=== PATIENT | male | born 1995 | race Two or more races ===

== ENCOUNTER 2019-09-05 00:47 | Inpatient (IN) | payer MEDICAID, OTHER ==
[~2019-09-05] VITALS: Ht 170.2 cm; Wt 78.9 kg
[2019-09-05 01:51] LABS: AMPHET/METH SCREEN,URINE NEGATIVE (NEGATIVE); BARBITURATE SCREEN, URINE NEGATIVE (NEGATIVE); BENZODIAZEPINES SCREEN,URINE NEGATIVE (NEGATIVE); CANNABINOID SCREEN,URINE NEGATIVE (NEGATIVE); COCAINE SCREEN,URINE NEGATIVE (NEGATIVE); METHADONE SCREEN, URINE NEGATIVE (NEGATIVE); OPIATE SCREEN,URINE NEGATIVE (NEGATIVE)
[2019-09-05 01:52] LABS: PHENCYCLIDINE SCREEN,URINE NEGATIVE (NEGATIVE)
[2019-09-05] MEDS ORDERED: OLAN5TAB40 PO (02:12)
[2019-09-05 02:34] LABS: ANION GAP 7 mmol/L (8-16); CALCIUM, TOTAL 9.3 mg/dL (8.8-10.5); CARBON DIOXIDE 28 mmol/L (22-29); CHLORIDE 102 mmol/L (98-107); CREATININE 0.92 mg/dL (0.60-1.30); GLOMERULAR FILTR. RATE CALC > 60 mL/min (>60); GLUCOSE,RANDOM 104 mg/dL (70-110); POTASSIUM 3.9 mmol/L (3.5-5.1); SODIUM SERUM 137 mmol/L (136-145); UREA NITROGEN, BLOOD 8 mg/dL (7-18)
[2019-09-05 02:40] LABS: ALANINE AMINOTRANSFERASE 25 U/L (12-78); ALBUMIN 3.6 g/dL (3.4-5.0); ALKALINE PHOSPHATASE 83 U/L (46-116); ASPARTATE AMINOTRANSFERASE 15 U/L (15-37); BILIRUBIN,TOTAL 0.1 mg/dL (0.1-1.0)
[2019-09-05 02:51] LABS: BASOPHILS % (AUTO) 0.3 % (0.0-2.0); EOSINOPHILS % (AUTO) 1.4 % (1.0-6.0); HEMATOCRIT 44.5 % (41-53); HEMOGLOBIN 15.1 g/dL (13.5-17.5); LYMPHOCYTES # (AUTO) 2.8 K/uL (1.0-4.8); LYMPHOCYTES % (AUTO) 40.4 % (22.0-44.0); MEAN CORPUSCULAR HEMOGLOBIN 29.6 pg (26.0-34.0); MEAN CORPUSCULAR VOLUME 87 fL (80-100); MONOCYTES # (AUTO) 0.4 K/uL (0.1-1.0); NEUTROPHILS # (AUTO) 3.6 K/uL (1.8-7.7); NEUTROPHILS % (AUTO) 51.9 % (40.0-70.0); PLATELET COUNT (AUTO) 388 K/uL (150-450); RED BLOOD CELL COUNT(AUTO) 5.11 MIL/uL (4.50-5.90); RED CELL DISTRIBUTION WIDTH 13.7 % (11.5-14.5)
[2019-09-05] MEDS ORDERED: QUEtiapine FUMARATE 100 MG TABLET PO PRN (04:45)
[2019-09-05 06:12] VITALS: BP 138/91
[2019-09-05 06:19] VITALS: BP 138/91
[2019-09-05] MEDS ORDERED: INFLUENZA VIRUS VACCINE QVS 2019-20 (3YR+)/PF 60 MCG/0.5 ML SYRINGE IM ONE (07:00)
[2019-09-05 08:30] VITALS: BP 135/86
[2019-09-05] MEDS ORDERED: GuaiFENesin/D-METHORPHAN [SUGAR-FREE] 200-20MG/10 ML SYRUP UDCUP PO PRN (11:30)
[2019-09-05] MEDS ORDERED: TUBERCULIN, PURIFIED PROTEIN DERIVATIVE 5 TU/0.1 ML SYRINGE ID ONE (11:30)
[2019-09-05] MEDS ORDERED: LOPERAMIDE HCL 2 MG CAPSULE PO PRN (11:30)
[2019-09-05] MEDS: THIAMINE HCL 100 MG TABLET PO SCH (16:50)
[2019-09-05 17:25] VITALS: BP 107/55
[2019-09-05] MEDS: ACETAMINOPHEN 325 MG TABLET PO PRN (17:38)
[2019-09-05] MEDS ORDERED: OLANZapine 5 MG RAPDIS TABLET PO SCH (21:00)
[2019-09-06 04:15] VITALS: BP 129/88
[2019-09-06 08:18] LABS: CHOL/HDL RATIO 5.1 (4.2-7.3); FREE T4 (FREE THYROXINE) 1.2 ng/dL (0.76-1.46); THYROID STIMULATING HORMONE 0.77 uIU/mL (0.36-3.74)
[2019-09-06 08:30] VITALS: BP 138/76
[2019-09-06] MEDS: FOLIC ACID 1 MG TABLET PO SCH (08:37)
[2019-09-06] MEDS: NALTREXONE HCL 50 MG TABLET PO SCH (08:37)
[2019-09-06] MEDS: MULTIVITAMINS WITH MINERALS, THERAPEUTIC TABLET PO SCH (08:37)
[2019-09-06] MEDS: OLANZapine 5 MG RAPDIS TABLET PO PRN (08:38)
[2019-09-06] MEDS: THIAMINE HCL 100 MG TABLET PO SCH ×2 (08:39→16:32)
[2019-09-06] MEDS: LORazepam 2 MG TABLET PO PRN ×2 (09:54→10:18)
[2019-09-06] MEDS: HydrOXYzine PAMOATE 50 MG CAPSULE PO PRN (10:18)
[2019-09-06 17:28] VITALS: BP 127/65
[2019-09-06 19:40] VITALS: BP 130/78
[2019-09-06] MEDS: ACETAMINOPHEN 325 MG TABLET PO PRN (19:43)
[2019-09-06] MEDS: OLANZapine 10 MG RAPDIS TABLET PO SCH (20:23)
[2019-09-07] MEDS: NALTREXONE HCL 50 MG TABLET PO SCH (08:24)
[2019-09-07] MEDS: FOLIC ACID 1 MG TABLET PO SCH (08:24)
[2019-09-07] MEDS: MULTIVITAMINS WITH MINERALS, THERAPEUTIC TABLET PO SCH (08:24)
[2019-09-07] MEDS: THIAMINE HCL 100 MG TABLET PO SCH ×2 (08:24→16:20)
[2019-09-07] MEDS: LORazepam 2 MG TABLET PO PRN ×2 (08:28→23:46)
[2019-09-07] MEDS: OLANZapine 5 MG RAPDIS TABLET PO PRN (08:28)
[2019-09-07 16:08] VITALS: BP 125/60
[2019-09-07] MEDS: HydrOXYzine PAMOATE 50 MG CAPSULE PO PRN (16:20)
[2019-09-07] MEDS: ACETAMINOPHEN 325 MG TABLET PO PRN (16:21)
[2019-09-07] MEDS: MAGNESIUM HYDROXIDE SUSPENSION 30 ML UDCUP PO PRN (17:14)
[2019-09-07] MEDS: OLANZapine 10 MG RAPDIS TABLET PO SCH (20:29)
[2019-09-07] MEDS: DIVALPROEX SODIUM 250 MG ER TABLET PO SCH (20:29)
[2019-09-07] MEDS: ZOLPIDEM TARTRATE 10 MG TABLET PO PRN (23:46)
[2019-09-08 00:31] VITALS: BP 151/76
[2019-09-08 08:30] VITALS: BP 144/73
[2019-09-08] MEDS: THIAMINE HCL 100 MG TABLET PO SCH ×2 (08:40→16:06)
[2019-09-08] MEDS: MULTIVITAMINS WITH MINERALS, THERAPEUTIC TABLET PO SCH (08:40)
[2019-09-08] MEDS: LORazepam 2 MG TABLET PO PRN ×3 (08:40→18:44)
[2019-09-08] MEDS: NALTREXONE HCL 50 MG TABLET PO SCH (08:40)
[2019-09-08] MEDS: FOLIC ACID 1 MG TABLET PO SCH (08:40)
[2019-09-08] MEDS: OLANZapine 5 MG RAPDIS TABLET PO PRN ×2 (08:40→13:12)
[2019-09-08] MEDS: HydrOXYzine PAMOATE 50 MG CAPSULE PO PRN ×3 (08:40→18:44)
[2019-09-08 16:14] VITALS: BP 150/89
[2019-09-08] MEDS: ACETAMINOPHEN 325 MG TABLET PO PRN (18:27)
[2019-09-08] MEDS: DIVALPROEX SODIUM 250 MG ER TABLET PO SCH (20:16)
[2019-09-08] MEDS: OLANZapine 10 MG RAPDIS TABLET PO SCH (20:17)
[2019-09-08] MEDS ORDERED: LORazepam 2 MG/ML VIAL IM ONE (21:20)
[2019-09-08] MEDS ORDERED: DiphenhydrAMINE HCL 50 MG/ML VIAL ONE (21:20)
[2019-09-08] MEDS ORDERED: HALOPERIDOL LACTATE 5 MG/ML VIAL ONE (21:20)
[2019-09-08] MEDS ORDERED: DiphenhydrAMINE HCL 50 MG/ML VIAL IM ONE (21:20)
[2019-09-08] MEDS ORDERED: LORazepam 2 MG/ML VIAL ONE (21:20)
[2019-09-09] MEDS: ZOLPIDEM TARTRATE 10 MG TABLET PO PRN (00:55)
[2019-09-09] MEDS: OLANZapine 5 MG RAPDIS TABLET PO PRN (00:56)
[2019-09-09] MEDS: MULTIVITAMINS WITH MINERALS, THERAPEUTIC TABLET PO SCH (08:39)
[2019-09-09] MEDS: THIAMINE HCL 100 MG TABLET PO SCH ×2 (08:39→15:56)
[2019-09-09] MEDS: FOLIC ACID 1 MG TABLET PO SCH (08:39)
[2019-09-09] MEDS: NALTREXONE HCL 50 MG TABLET PO SCH (08:40)
[2019-09-09 10:03] VITALS: BP 161/84
[2019-09-09] MEDS: LORazepam 2 MG TABLET PO PRN (15:56)
[2019-09-09] MEDS: DIVALPROEX SODIUM 250 MG ER TABLET PO SCH (20:19)
[2019-09-09] MEDS: OLANZapine 10 MG RAPDIS TABLET PO SCH (20:20)
[2019-09-09] MEDS: MAG HYDROX/AL HYDROX/SIMETH ES 30 ML SUSPENSION UDCUP PO PRN (21:34)
[2019-09-10] MEDS: ZOLPIDEM TARTRATE 10 MG TABLET PO PRN ×2 (02:52→22:59)
[2019-09-10] MEDS: LORazepam 2 MG TABLET PO PRN ×4 (02:53→23:48)
[2019-09-10] MEDS: THIAMINE HCL 100 MG TABLET PO SCH ×2 (07:57→16:17)
[2019-09-10] MEDS: PROMETHAZINE HCL 25 MG TABLET PO PRN (07:57)
[2019-09-10] MEDS: FOLIC ACID 1 MG TABLET PO SCH (07:57)
[2019-09-10] MEDS: NALTREXONE HCL 50 MG TABLET PO SCH (07:57)
[2019-09-10] MEDS: MULTIVITAMINS WITH MINERALS, THERAPEUTIC TABLET PO SCH (08:00)
[2019-09-10] MEDS: OLANZapine 5 MG RAPDIS TABLET PO PRN (08:02)
[2019-09-10 08:43] VITALS: BP 123/73
[2019-09-10] MEDS: NICOTINE 21 MG/24 HOUR PATCH TD SCH (18:31)
[2019-09-10] MEDS: MAG HYDROX/AL HYDROX/SIMETH ES 30 ML SUSPENSION UDCUP PO PRN (19:08)
[2019-09-10] MEDS: OLANZapine 10 MG RAPDIS TABLET PO SCH (20:35)
[2019-09-10] MEDS: TraZODone HCL 100 MG TABLET PO SCH (20:35)
[2019-09-10] MEDS: DIVALPROEX SODIUM 250 MG ER TABLET PO SCH (20:35)
[2019-09-11 00:03] VITALS: BP 158/85
[2019-09-11] MEDS: ACETAMINOPHEN 325 MG TABLET PO PRN ×3 (00:05→21:52)
[2019-09-11] MEDS: OLANZapine 5 MG RAPDIS TABLET PO PRN ×3 (01:53→15:55)
[2019-09-11] MEDS: THIAMINE HCL 100 MG TABLET PO SCH ×2 (07:53→15:55)
[2019-09-11] MEDS: FOLIC ACID 1 MG TABLET PO SCH (07:53)
[2019-09-11] MEDS: MULTIVITAMINS WITH MINERALS, THERAPEUTIC TABLET PO SCH (07:53)
[2019-09-11] MEDS: LORazepam 2 MG TABLET PO PRN ×3 (07:54→23:14)
[2019-09-11] MEDS: NALTREXONE HCL 50 MG TABLET PO SCH (07:55)
[2019-09-11] MEDS: NICOTINE 21 MG/24 HOUR PATCH TD SCH (07:56)
[2019-09-11 08:24] VITALS: BP 148/75
[2019-09-11] MEDS: FLUoxetine HCL 20 MG CAPSULE PO SCH (11:18)
[2019-09-11] MEDS ORDERED: HALOPERIDOL LACTATE 5 MG/ML VIAL IM ONE (16:30)
[2019-09-11] MEDS ORDERED: DiphenhydrAMINE HCL 50 MG/ML VIAL IM ONE (16:30)
[2019-09-11] MEDS ORDERED: LORazepam 2 MG/ML VIAL IM ONE (16:30)
[2019-09-11 18:21] VITALS: BP 121/73
[2019-09-11] MEDS: MAG HYDROX/AL HYDROX/SIMETH ES 30 ML SUSPENSION UDCUP PO PRN (18:54)
[2019-09-11] MEDS: DIVALPROEX SODIUM 250 MG ER TABLET PO SCH (20:15)
[2019-09-11] MEDS: TraZODone HCL 100 MG TABLET PO SCH (20:15)
[2019-09-11] MEDS: OLANZapine 10 MG RAPDIS TABLET PO SCH (20:16)
[2019-09-11 22:02] VITALS: BP 133/84
[2019-09-12 08:08] VITALS: BP 134/72
[2019-09-12] MEDS: FLUoxetine HCL 20 MG CAPSULE PO SCH (08:08)
[2019-09-12] MEDS: MULTIVITAMINS WITH MINERALS, THERAPEUTIC TABLET PO SCH (08:08)
[2019-09-12] MEDS: OLANZapine 5 MG RAPDIS TABLET PO PRN ×3 (08:08→17:55)
[2019-09-12] MEDS: LORazepam 2 MG TABLET PO PRN ×4 (08:08→22:07)
[2019-09-12] MEDS: FOLIC ACID 1 MG TABLET PO SCH (08:08)
[2019-09-12] MEDS: THIAMINE HCL 100 MG TABLET PO SCH ×2 (08:08→16:05)
[2019-09-12] MEDS: NALTREXONE HCL 50 MG TABLET PO SCH (08:10)
[2019-09-12] MEDS: NICOTINE 21 MG/24 HOUR PATCH TD SCH (08:12)
[2019-09-12] MEDS: MAGNESIUM HYDROXIDE SUSPENSION 30 ML UDCUP PO PRN (16:58)
[2019-09-12] MEDS: OLANZapine 10 MG RAPDIS TABLET PO SCH (20:06)
[2019-09-12] MEDS: DIVALPROEX SODIUM 500 MG ER TABLET PO SCH (20:06)
[2019-09-12] MEDS: TraZODone HCL 100 MG TABLET PO SCH (20:06)
[2019-09-12] MEDS: ACETAMINOPHEN 325 MG TABLET PO PRN (20:08)
[2019-09-13 08:20] VITALS: BP 138/65
[2019-09-13] MEDS: FLUoxetine HCL 20 MG CAPSULE PO SCH (08:28)
[2019-09-13] MEDS: FOLIC ACID 1 MG TABLET PO SCH (08:29)
[2019-09-13] MEDS: NALTREXONE HCL 50 MG TABLET PO SCH (08:29)
[2019-09-13] MEDS: MULTIVITAMINS WITH MINERALS, THERAPEUTIC TABLET PO SCH (08:29)
[2019-09-13] MEDS: THIAMINE HCL 100 MG TABLET PO SCH ×2 (08:29→15:57)
[2019-09-13] MEDS: NICOTINE 21 MG/24 HOUR PATCH TD SCH (08:30)
[2019-09-13] MEDS: PROMETHAZINE HCL 25 MG TABLET PO PRN (11:41)
[2019-09-13] MEDS: LORazepam 2 MG TABLET PO PRN ×2 (11:41→15:46)
[2019-09-13 13:15] VITALS: BP 120/94
[2019-09-13] MEDS: ACETAMINOPHEN 325 MG TABLET PO PRN ×2 (13:15→18:25)
[2019-09-13] MEDS: OLANZapine 5 MG RAPDIS TABLET PO PRN (15:35)
[2019-09-13] MEDS ORDERED: MUPIROCIN CALCIUM 2% 22 GM OINTMENT NASAL SCH (17:00)
[2019-09-13 18:26] VITALS: BP 133/82
[2019-09-13] MEDS: DIVALPROEX SODIUM 500 MG ER TABLET PO SCH (20:18)
[2019-09-13] MEDS: TraZODone HCL 100 MG TABLET PO SCH (20:18)
[2019-09-13] MEDS: OLANZapine 10 MG RAPDIS TABLET PO SCH (20:18)
[2019-09-14 08:09] VITALS: BP 112/86
[2019-09-14] MEDS: NALTREXONE HCL 50 MG TABLET PO SCH (08:11)
[2019-09-14] MEDS: FOLIC ACID 1 MG TABLET PO SCH (08:11)
[2019-09-14] MEDS: FLUoxetine HCL 20 MG CAPSULE PO SCH (08:11)
[2019-09-14] MEDS: MULTIVITAMINS WITH MINERALS, THERAPEUTIC TABLET PO SCH (08:11)
[2019-09-14] MEDS: THIAMINE HCL 100 MG TABLET PO SCH ×2 (08:11→16:13)
[2019-09-14] MEDS: OMEGA-3/DHA/EPA/FISH OIL 1,000 MG CAPSULE PO SCH (08:11)
[2019-09-14] MEDS: NICOTINE 21 MG/24 HOUR PATCH TD SCH (08:11)
[2019-09-14] MEDS: OLANZapine 5 MG RAPDIS TABLET PO PRN (10:13)
[2019-09-14] MEDS: LORazepam 2 MG TABLET PO PRN (13:24)
[2019-09-14 14:27] VITALS: BP 124/82
[2019-09-14] MEDS: ACETAMINOPHEN 325 MG TABLET PO PRN (14:27)
[2019-09-14 16:09] VITALS: BP 138/87
[2019-09-14] MEDS: DIVALPROEX SODIUM 500 MG ER TABLET PO SCH (20:10)
[2019-09-14] MEDS: TraZODone HCL 100 MG TABLET PO SCH (20:11)
[2019-09-14] MEDS: OLANZapine 10 MG RAPDIS TABLET PO SCH (20:11)
[2019-09-15 01:42] VITALS: BP 130/70
[2019-09-15] MEDS: LORazepam 2 MG TABLET PO PRN ×3 (01:46→15:36)
[2019-09-15] MEDS: ACETAMINOPHEN 325 MG TABLET PO PRN ×2 (01:46→13:23)
[2019-09-15] MEDS: THIAMINE HCL 100 MG TABLET PO SCH (07:18)
[2019-09-15] MEDS: FLUoxetine HCL 20 MG CAPSULE PO SCH (07:18)
[2019-09-15] MEDS: NICOTINE 21 MG/24 HOUR PATCH TD SCH (07:18)
[2019-09-15] MEDS: NALTREXONE HCL 50 MG TABLET PO SCH (07:18)
[2019-09-15] MEDS: FOLIC ACID 1 MG TABLET PO SCH (07:18)
[2019-09-15] MEDS: OLANZapine 5 MG RAPDIS TABLET PO PRN ×2 (07:18→15:36)
[2019-09-15] MEDS: MULTIVITAMINS WITH MINERALS, THERAPEUTIC TABLET PO SCH (07:19)
[2019-09-15] MEDS: OMEGA-3/DHA/EPA/FISH OIL 1,000 MG CAPSULE PO SCH (07:19)
[2019-09-15 08:29] LABS: BASOPHILS % (AUTO) 0.5 % (0.0-2.0); HEMATOCRIT 40.8 % (41-53); HEMOGLOBIN 13.7 g/dL (13.5-17.5); LYMPHOCYTES # (AUTO) 2.5 K/uL (1.0-4.8); LYMPHOCYTES % (AUTO) 37.9 % (22.0-44.0); MEAN CORPUSCULAR HEMOGLOBIN 29.4 pg (26.0-34.0); MEAN CORPUSCULAR HGB CONC 33.6 G/dL (31.0-37.0); MEAN CORPUSCULAR VOLUME 87 fL (80-100); MONOCYTES # (AUTO) 0.5 K/uL (0.1-1.0); MONOCYTES % (AUTO) 7.1 % (2.0-9.0); NEUTROPHILS # (AUTO) 3.5 K/uL (1.8-7.7); NEUTROPHILS % (AUTO) 51.5 % (40.0-70.0); PLATELET COUNT (AUTO) 320 K/uL (150-450); RED BLOOD CELL COUNT(AUTO) 4.66 MIL/uL (4.50-5.90); RED CELL DISTRIBUTION WIDTH 13.8 % (11.5-14.5)
[2019-09-15 08:46] LABS: ALANINE AMINOTRANSFERASE 30 U/L (12-78); ALKALINE PHOSPHATASE 56 U/L (46-116); ANION GAP 7 mmol/L (8-16); ASPARTATE AMINOTRANSFERASE 17 U/L (15-37); BILIRUBIN,TOTAL 0.2 mg/dL (0.1-1.0); CALCIUM, TOTAL 8.6 mg/dL (8.8-10.5); CARBON DIOXIDE 27 mmol/L (22-29); CHLORIDE 100 mmol/L (98-107); CREATININE 0.99 mg/dL (0.60-1.30); GLOMERULAR FILTR. RATE CALC > 60 mL/min (>60); GLUCOSE,RANDOM 128 mg/dL (70-110); POTASSIUM 3.9 mmol/L (3.5-5.1); SODIUM SERUM 134 mmol/L (136-145); TOTAL PROTEIN, SERUM 6.2 g/dL (6.4-8.2); UREA NITROGEN, BLOOD 12 mg/dL (7-18); VALPROIC ACID 62 mcg/mL (50-100)
[2019-09-15 10:08] VITALS: BP 134/74
[2019-09-15] MEDS: MAGNESIUM HYDROXIDE SUSPENSION 30 ML UDCUP PO PRN (11:46)
[2019-09-15] MEDS: MAGNESIUM SULFATE 454 GM BOX TP SCH (16:16)
[2019-09-15 19:49] VITALS: BP 145/65
[2019-09-15] MEDS: OLANZapine 10 MG RAPDIS TABLET PO SCH (19:52)
[2019-09-15] MEDS: DIVALPROEX SODIUM 500 MG ER TABLET PO SCH (19:52)
[2019-09-15] MEDS: TraZODone HCL 100 MG TABLET PO SCH (19:52)
[2019-09-15] MEDS: NAPROXEN 500 MG TABLET PO PRN (21:53)
[2019-09-15 21:54] VITALS: BP 132/78
[2019-09-15] MEDS: MAG HYDROX/AL HYDROX/SIMETH ES 30 ML SUSPENSION UDCUP PO PRN (21:57)
[2019-09-16 05:15] VITALS: BP 110/75
[2019-09-16] MEDS: LORazepam 2 MG TABLET PO PRN ×3 (05:21→16:04)
[2019-09-16] MEDS: ACETAMINOPHEN 325 MG TABLET PO PRN ×3 (05:22→10:01)
[2019-09-16 08:04] VITALS: BP 139/62
[2019-09-16] MEDS: FLUoxetine HCL 20 MG CAPSULE PO SCH (08:19)
[2019-09-16] MEDS: NICOTINE 21 MG/24 HOUR PATCH TD SCH (08:19)
[2019-09-16] MEDS: NALTREXONE HCL 50 MG TABLET PO SCH (08:19)
[2019-09-16] MEDS: MULTIVITAMINS WITH MINERALS, THERAPEUTIC TABLET PO SCH (08:19)
[2019-09-16] MEDS: MAGNESIUM SULFATE 454 GM BOX TP SCH ×2 (08:20→16:04)
[2019-09-16] MEDS: OMEGA-3/DHA/EPA/FISH OIL 1,000 MG CAPSULE PO SCH (08:21)
[2019-09-16] MEDS: OLANZapine 5 MG RAPDIS TABLET PO PRN ×2 (10:01→16:04)
[2019-09-16] MEDS: MAG HYDROX/AL HYDROX/SIMETH ES 30 ML SUSPENSION UDCUP PO PRN (15:37)
[2019-09-16] MEDS: MAGNESIUM HYDROXIDE SUSPENSION 30 ML UDCUP PO PRN (15:37)
[2019-09-16 16:17] VITALS: BP 126/73
[2019-09-16] MEDS: OLANZapine 10 MG RAPDIS TABLET PO SCH ×2 (19:30→20:18)
[2019-09-16] MEDS: DIVALPROEX SODIUM 500 MG ER TABLET PO SCH ×2 (19:31→20:18)
[2019-09-16] MEDS: TraZODone HCL 100 MG TABLET PO SCH ×2 (19:33→20:18)
[2019-09-16] MEDS: ZOLPIDEM TARTRATE 10 MG TABLET PO PRN (20:52)
[2019-09-17] MEDS: FLUoxetine HCL 20 MG CAPSULE PO SCH (07:42)
[2019-09-17] MEDS: NALTREXONE HCL 50 MG TABLET PO SCH (07:42)
[2019-09-17] MEDS: MULTIVITAMINS WITH MINERALS, THERAPEUTIC TABLET PO SCH (07:42)
[2019-09-17] MEDS: OMEGA-3/DHA/EPA/FISH OIL 1,000 MG CAPSULE PO SCH (07:42)
[2019-09-17] MEDS: NICOTINE 21 MG/24 HOUR PATCH TD SCH (07:43)
[2019-09-17] MEDS: MAGNESIUM SULFATE 454 GM BOX TP SCH ×2 (07:43→16:12)
[2019-09-17] MEDS: MAGNESIUM HYDROXIDE SUSPENSION 30 ML UDCUP PO PRN ×2 (08:13→13:03)
[2019-09-17] MEDS: LORazepam 2 MG TABLET PO PRN ×3 (09:26→21:53)
[2019-09-17] MEDS: OLANZapine 5 MG RAPDIS TABLET PO PRN ×2 (09:26→16:10)
[2019-09-17 10:58] VITALS: BP 140/67
[2019-09-17] MEDS ORDERED: MAGNESIUM CITRATE 300 ML ORAL SOLUTION PO ONE (15:15)
[2019-09-17 16:13] VITALS: BP 136/92
[2019-09-17 17:16] VITALS: BP 128/85
[2019-09-17] MEDS: ACETAMINOPHEN 325 MG TABLET PO PRN (17:16)
[2019-09-17] MEDS: TraZODone HCL 100 MG TABLET PO SCH (20:21)
[2019-09-17] MEDS: DIVALPROEX SODIUM 500 MG ER TABLET PO SCH (20:21)
[2019-09-17] MEDS: OLANZapine 10 MG RAPDIS TABLET PO SCH (20:21)
[2019-09-17] MEDS: ZOLPIDEM TARTRATE 10 MG TABLET PO PRN (20:35)
[2019-09-18] MEDS: OLANZapine 5 MG RAPDIS TABLET PO PRN ×2 (00:58→13:47)
[2019-09-18] MEDS: ACETAMINOPHEN 325 MG TABLET PO PRN ×2 (04:00→16:26)
[2019-09-18 04:01] VITALS: BP 130/70
[2019-09-18] MEDS: NICOTINE 21 MG/24 HOUR PATCH TD SCH (08:19)
[2019-09-18] MEDS: NALTREXONE HCL 50 MG TABLET PO SCH (08:19)
[2019-09-18] MEDS: FLUoxetine HCL 20 MG CAPSULE PO SCH (08:19)
[2019-09-18] MEDS: OMEGA-3/DHA/EPA/FISH OIL 1,000 MG CAPSULE PO SCH (08:19)
[2019-09-18] MEDS: MULTIVITAMINS WITH MINERALS, THERAPEUTIC TABLET PO SCH (08:20)
[2019-09-18 09:39] VITALS: BP 125/63
[2019-09-18] MEDS: MAGNESIUM SULFATE 454 GM BOX TP SCH ×2 (10:00→16:26)
[2019-09-18] MEDS: LORazepam 2 MG TABLET PO PRN (12:14)
[2019-09-18 16:06] VITALS: BP 123/72
[2019-09-18] MEDS: DIVALPROEX SODIUM 500 MG ER TABLET PO SCH (20:13)
[2019-09-18] MEDS: TraZODone HCL 100 MG TABLET PO SCH (20:13)
[2019-09-18] MEDS: OLANZapine 10 MG RAPDIS TABLET PO SCH (20:13)
[2019-09-19 00:45] VITALS: BP 134/82
[2019-09-19] MEDS: ZOLPIDEM TARTRATE 10 MG TABLET PO PRN (00:47)
[2019-09-19] MEDS: ACETAMINOPHEN 325 MG TABLET PO PRN (00:48)
[2019-09-19 05:15] VITALS: BP 123/70
[2019-09-19] MEDS: NAPROXEN 500 MG TABLET PO PRN (05:21)
[2019-09-19] MEDS: OMEGA-3/DHA/EPA/FISH OIL 1,000 MG CAPSULE PO SCH (07:33)
[2019-09-19] MEDS: OLANZapine 5 MG RAPDIS TABLET PO PRN ×2 (07:33→12:36)
[2019-09-19] MEDS: FLUoxetine HCL 20 MG CAPSULE PO SCH (07:33)
[2019-09-19] MEDS: MULTIVITAMINS WITH MINERALS, THERAPEUTIC TABLET PO SCH (07:33)
[2019-09-19] MEDS: LORazepam 2 MG TABLET PO PRN ×2 (07:33→12:36)
[2019-09-19] MEDS: MAGNESIUM SULFATE 454 GM BOX TP SCH ×2 (07:34→16:43)
[2019-09-19] MEDS: NALTREXONE HCL 50 MG TABLET PO SCH (07:34)
[2019-09-19] MEDS: NICOTINE 21 MG/24 HOUR PATCH TD SCH (07:35)
[2019-09-19 08:02] VITALS: BP 143/87
[2019-09-19 16:10] VITALS: BP 140/70
[2019-09-19] MEDS: DIVALPROEX SODIUM 500 MG ER TABLET PO SCH (20:17)
[2019-09-19] MEDS: OLANZapine 10 MG RAPDIS TABLET PO SCH (20:18)
[2019-09-19] MEDS: TraZODone HCL 100 MG TABLET PO SCH (20:18)
[2019-09-20 01:30] VITALS: BP 117/72
[2019-09-20] MEDS: NAPROXEN 500 MG TABLET PO PRN ×2 (01:32→14:07)
[2019-09-20] MEDS: MAGNESIUM SULFATE 454 GM BOX TP SCH ×2 (07:49→18:41)
[2019-09-20] MEDS: NALTREXONE HCL 50 MG TABLET PO SCH (07:49)
[2019-09-20] MEDS: OMEGA-3/DHA/EPA/FISH OIL 1,000 MG CAPSULE PO SCH (07:52)
[2019-09-20] MEDS: FLUoxetine HCL 20 MG CAPSULE PO SCH (07:53)
[2019-09-20] MEDS: LORazepam 2 MG TABLET PO PRN ×2 (07:53→14:34)
[2019-09-20] MEDS: NICOTINE 21 MG/24 HOUR PATCH TD SCH (07:53)
[2019-09-20] MEDS: OLANZapine 5 MG RAPDIS TABLET PO PRN ×2 (07:53→14:34)
[2019-09-20] MEDS: MULTIVITAMINS WITH MINERALS, THERAPEUTIC TABLET PO SCH (07:53)
[2019-09-20 09:13] VITALS: BP 143/79
[2019-09-20 16:11] VITALS: BP 135/71
[2019-09-20] MEDS: DIVALPROEX SODIUM 500 MG ER TABLET PO SCH (20:08)
[2019-09-20] MEDS: OLANZapine 10 MG RAPDIS TABLET PO SCH (20:08)
[2019-09-20] MEDS: TraZODone HCL 100 MG TABLET PO SCH (20:08)
[2019-09-20] MEDS: ZOLPIDEM TARTRATE 10 MG TABLET PO PRN (21:27)
[2019-09-21 00:26] VITALS: BP 145/81
[2019-09-21] MEDS: ACETAMINOPHEN 325 MG TABLET PO PRN (04:37)
[2019-09-21 08:23] VITALS: BP 131/85
[2019-09-21] MEDS: OMEGA-3/DHA/EPA/FISH OIL 1,000 MG CAPSULE PO SCH (08:23)
[2019-09-21] MEDS: NICOTINE 21 MG/24 HOUR PATCH TD SCH (08:23)
[2019-09-21] MEDS: NALTREXONE HCL 50 MG TABLET PO SCH (08:23)
[2019-09-21] MEDS: FLUoxetine HCL 20 MG CAPSULE PO SCH (08:23)
[2019-09-21] MEDS: MULTIVITAMINS WITH MINERALS, THERAPEUTIC TABLET PO SCH (08:23)
[2019-09-21] MEDS: MAGNESIUM SULFATE 454 GM BOX TP SCH ×2 (08:25→16:21)
[2019-09-21 09:12] VITALS: BP 132/78
[2019-09-21] MEDS: NAPROXEN 500 MG TABLET PO PRN (09:12)
[2019-09-21] MEDS: LORazepam 2 MG TABLET PO PRN (12:30)
[2019-09-21] MEDS: OLANZapine 5 MG RAPDIS TABLET PO PRN (16:11)
[2019-09-21 16:14] VITALS: BP 128/76
[2019-09-21] MEDS: DIVALPROEX SODIUM 500 MG ER TABLET PO SCH (20:08)
[2019-09-21] MEDS: OLANZapine 10 MG RAPDIS TABLET PO SCH (20:08)
[2019-09-21] MEDS: TraZODone HCL 100 MG TABLET PO SCH (20:08)
[2019-09-22 08:20] VITALS: BP 134/85
[2019-09-22] MEDS: OLANZapine 5 MG RAPDIS TABLET PO PRN (08:54)
[2019-09-22] MEDS: LORazepam 2 MG TABLET PO PRN (08:54)
[2019-09-22] MEDS: FLUoxetine HCL 20 MG CAPSULE PO SCH (08:54)
[2019-09-22] MEDS: OMEGA-3/DHA/EPA/FISH OIL 1,000 MG CAPSULE PO SCH (08:54)
[2019-09-22] MEDS: MULTIVITAMINS WITH MINERALS, THERAPEUTIC TABLET PO SCH (08:54)
[2019-09-22] MEDS: MAGNESIUM SULFATE 454 GM BOX TP SCH (08:55)
[2019-09-22] MEDS: NALTREXONE HCL 50 MG TABLET PO SCH (08:55)
[2019-09-22] MEDS: NICOTINE 21 MG/24 HOUR PATCH TD SCH (08:55)
[2019-09-22] MEDS ORDERED: OLAN10TA6 PO (10:14)
[2019-09-22] MEDS ORDERED: OMEG-135 PO (10:14)
[2019-09-22] MEDS ORDERED: NALT50TA6 PO (10:14)
[2019-09-22] MEDS ORDERED: TRAZ-257 PO (10:14)
[2019-09-22] MEDS ORDERED: DIVA-78 PO (10:14)
[2019-09-22] MEDS ORDERED: EPSOT TP (10:14)
[2019-09-22] MEDS ORDERED: FLUO-191 PO (10:14)
[2019-09-22] MEDS ORDERED: MULT-723 PO (10:14)
== END 2019-09-22 13:20 | disposition home or self-care (01) | DRG 885 ==
LOC: EMS 00:48 → 3EC 04:30
PROVIDERS: ADMIT Psychiatry & Neurology Psychiatry; ATTEND Psychiatry & Neurology Psychiatry
DX: F20.0 Paranoid schizophrenia (principal); R45.851 Suicidal ideations; F17.210 Nicotine dependence, cigarettes, uncomplicated; G47.00 Insomnia, unspecified; F15.90 Other stimulant use, unspecified, uncomplicated; F10.10 Alcohol abuse, uncomplicated; R45.87 Impulsiveness; Z79.899 Other long term (current) drug therapy; Z91.19 Patient's noncompliance with other medical treatment and regimen
CPT/HCPCS: 70450; 84439; 84443; 86592; 87081; 90686; G0480; J1200; J1630; J2060; J3230

== ENCOUNTER 2019-10-09 16:34 | Emergency (ER) | payer MEDICAID, OTHER ==
[~2019-10-09] VITALS: Ht 170.2 cm; Wt 70.5 kg
[~2019-10-09 16:34] MED LIST: DIVA-78 PO; EPSOT TP; FLUO-191 PO; MULT-723 PO; NALT50TA6 PO; OLAN10TA6 PO; OMEG-135 PO; TRAZ-257 PO
[2019-10-09] MEDS ORDERED: RISP.5 PO (16:40)
[2019-10-09 17:22] LABS: BASOPHILS % (AUTO) 0.4 % (0.0-2.0); EOSINOPHILS % (AUTO) 0.7 % (1.0-6.0); HEMATOCRIT 45.1 % (41-53); HEMOGLOBIN 14.9 g/dL (13.5-17.5); LYMPHOCYTES # (AUTO) 1.8 K/uL (1.0-4.8); LYMPHOCYTES % (AUTO) 19.1 % (22.0-44.0); MEAN CORPUSCULAR HEMOGLOBIN 28.9 pg (26.0-34.0); MEAN CORPUSCULAR HGB CONC 33.1 G/dL (31.0-37.0); MEAN CORPUSCULAR VOLUME 87 fL (80-100); MONOCYTES # (AUTO) 0.6 K/uL (0.1-1.0); MONOCYTES % (AUTO) 6.7 % (2.0-9.0); NEUTROPHILS # (AUTO) 6.8 K/uL (1.8-7.7); NEUTROPHILS % (AUTO) 73.1 % (40.0-70.0); PLATELET COUNT (AUTO) 343 K/uL (150-450); RED BLOOD CELL COUNT(AUTO) 5.18 MIL/uL (4.50-5.90); RED CELL DISTRIBUTION WIDTH 14.5 % (11.5-14.5)
[2019-10-09 17:30] LABS: ANION GAP 7 mmol/L (8-16); CALCIUM, TOTAL 9.3 mg/dL (8.8-10.5); CARBON DIOXIDE 30 mmol/L (22-29); CHLORIDE 100 mmol/L (98-107); CREATININE 0.89 mg/dL (0.60-1.30); GLOMERULAR FILTR. RATE CALC > 60 mL/min (>60); GLUCOSE,RANDOM 100 mg/dL (70-110); POTASSIUM 3.9 mmol/L (3.5-5.1); SODIUM SERUM 137 mmol/L (136-145); UREA NITROGEN, BLOOD 9 mg/dL (7-18)
[2019-10-09 17:36] LABS: ALANINE AMINOTRANSFERASE 32 U/L (12-78); ALBUMIN 4.5 g/dL (3.4-5.0); ALKALINE PHOSPHATASE 62 U/L (46-116); ASPARTATE AMINOTRANSFERASE 20 U/L (15-37); BILIRUBIN,TOTAL 0.2 mg/dL (0.1-1.0); TOTAL PROTEIN, SERUM 7.9 g/dL (6.4-8.2)
[2019-10-09 17:37] LABS: VALPROIC ACID < 3 mcg/mL (50-100)
[2019-10-09 18:11] LABS: AMPHET/METH SCREEN,URINE NEGATIVE (NEGATIVE); BARBITURATE SCREEN, URINE NEGATIVE (NEGATIVE); BENZODIAZEPINES SCREEN,URINE NEGATIVE (NEGATIVE); CANNABINOID SCREEN,URINE NEGATIVE (NEGATIVE); COCAINE SCREEN,URINE NEGATIVE (NEGATIVE); METHADONE SCREEN, URINE NEGATIVE (NEGATIVE); OPIATE SCREEN,URINE NEGATIVE (NEGATIVE)
[2019-10-09 18:15] LABS: PHENCYCLIDINE SCREEN,URINE NEGATIVE (NEGATIVE)
[2019-10-09 18:44] VITALS: BP 138/80
== END 2019-10-09 18:40 | disposition home or self-care (01) ==
LOC: EMS 16:35
DX: F25.9 Schizoaffective disorder, unspecified (principal); F17.210 Nicotine dependence, cigarettes, uncomplicated; F31.9 Bipolar disorder, unspecified; F19.90 Other psychoactive substance use, unspecified, uncomplicated; Z88.8 Allergy status to other drugs, medicaments and biological substances
CPT/HCPCS: 36415; 80053; 80164; 80307; 85025; 99284; 99406; G0480